=== PATIENT | female | born 1955 | race Hispanic/Latino ===

== ENCOUNTER 2023-04-24 11:01 | Outpatient (RCR) | payer MEDICARE | END 2023-05-05 | LOC: PT 11:01 | PROVIDERS: ATTEND Family Medicine | DX: M54.30 Sciatica, unspecified side (principal) ==

== ENCOUNTER 2024-06-18 13:40 | Inpatient (IN) | payer MEDICARE ==
[~2024-06-18] VITALS: Ht 154.9 cm; Wt 68.0 kg
[2024-06-18] MEDS: SODIUM CHLORIDE 0.9% 1000ML 1,000 ML IV STA ×3 (14:38→19:11)
[2024-06-18 14:41] LABS: BASOPHILS % 0.2 % (0.0-1.0); HEMATOCRIT 39.1 % (34.2-44.1); LYMPHOCYTES # (AUTO) 0.5 (1.0-3.2); LYMPHOCYTES % 9.4 % (18.0-39.1); MEAN CORPUSCULAR HEMOGLOBIN 26.5 pg (28-32); MEAN CORPUSCULAR HGB CONC 30.7 g/dL (31-35); MEAN CORPUSCULAR VOLUME 86.5 fL (81-99); MONOCYTES # (AUTO) 0.3 (0.2-0.8); NEUTROPHILS # (AUTO) 4.6 (2.1-6.9); NEUTROPHILS % 85.2 % (38.7-80.0); PLATELET COUNT 229 x10e3/uL (140-360); RED BLOOD COUNT 4.52 x10e6/uL (3.6-5.1); RED CELL DISTRIBUTION WIDTH 13.6 % (11.7-14.4); WHITE BLOOD COUNT 5.42 x10e3/uL (4.8-10.8)
[2024-06-18 14:50] LABS: INR 0.99; PROTHROMBIN TIME 13.7 seconds (11.9-14.5)
[2024-06-18] MEDS: Vancomycin IV 1 GM in SODIUM CHLORIDE 0.9% 250ML 250 ML IV ONE (14:50)
[2024-06-18 14:51] LABS: PARTIAL THROMBOPLASTIN TIME 35.3 seconds (23.8-35.5)
[2024-06-18] MEDS: ACETAMINOPHEN 325 MG TAB PO ONE (14:51)
[2024-06-18 14:55] LABS: BILIRUBIN,URINE NEGATIVE (NEGATIVE); CLARITY,URINE CLEAR (CLEAR); COLOR,URINE YELLOW (YELLOW); GLUCOSE, URINE 500 (NEGATIVE); KETONES,URINE 2+ (NEGATIVE); LEUKOCYTE ESTERASE ,URINE NEGATIVE (NEGATIVE); NITRITE,URINE POSITIVE (NEGATIVE); PH,URINE 6 (5 - 7); PROTEIN,URINE DIPSTICK 2+ (NEGATIVE); URINE UROBILINOGEN 0.2 mg/dL (0.2 - 1)
[2024-06-18 14:56] LABS: BACTERIA,URINE MANY /HPF; EPITHELIAL CELLS,URINE RARE /LPF; RBC,URINE 0-5 /HPF (0-5)
[2024-06-18 14:58] LABS: CREATINE KINASE 52 IU/L (29-168)
[2024-06-18 15:01] LABS: ALBUMIN 3.6 g/dL (3.5-5.0); ANION GAP 16.5 mmol/L (8-16); BILIRUBIN,TOTAL 0.4 mg/dL (0.2-1.2); CALCIUM 9.7 mg/dL (8.4-10.2); CREATININE, SERUM 0.75 mg/dL (0.57-1.11); MAGNESIUM 1.7 MG/DL (1.3-2.1); POTASSIUM 4.5 mmol/L (3.5-5.1); TOTAL PROTEIN 7.3 g/dL (6.5-8.1)
[2024-06-18 15:06] LABS: CORONAVIRUS COVID-19 AG NEGATIVE (NEGATIVE); INFLUENZA A AG NEGATIVE (NEGATIVE); INFLUENZA B AG NEGATIVE (NEGATIVE)
[2024-06-18 15:52] LABS: TROPONIN I < 0.001 ng/mL (0-0.300)
[2024-06-18] MEDS ORDERED: ONDANSETRON HCL INJ 2MG/ML 2ML 2 MG/ML VIAL IV PRN (18:30)
[2024-06-18 19:05] VITALS: TEMP 98.1
[2024-06-18] MEDS: SODIUM CHLORIDE 0.9% 1000ML 1,000 ML IV SCH (19:14)
[2024-06-18] MEDS: MEROPENEM 1 GM in SODIUM CHLORIDE 0.9% 100 ML IV SCH (19:15)
[2024-06-18 21:06] VITALS: PULSE 83; RESP 18
[2024-06-18 21:30] VITALS: BP 127/65; PULSE 87; RESP 20; TEMP 98.3; O2SAT 100
[2024-06-18] MEDS ORDERED: JARDIANCE25 MG PO (22:13)
[2024-06-18] MEDS ORDERED: METFORMIN HCL1000 MG PO (22:13)
[2024-06-18] MEDS ORDERED: LEVOTHYROXINE150 MCG PO (22:13)
[2024-06-18] MEDS ORDERED: CETIRIZINE HCL10 MG PO (22:13)
[2024-06-18] MEDS ORDERED: DICYCLOMINE HCL10 MG PO (22:13)
[2024-06-18] MEDS ORDERED: DORZOLAMIDE-TIM10 ML OP (22:13)
[2024-06-18] MEDS ORDERED: VASOTEC5 MG PO (22:13)
[2024-06-18] MEDS ORDERED: SUCRALFATE1 GM PO (22:13)
[2024-06-18] MEDS ORDERED: EZETIMIBE10 MG PO (22:13)
[2024-06-18] MEDS ORDERED: VASCEPA1 GM PO (22:13)
[2024-06-18] MEDS ORDERED: GLIMEPIRIDE2 MG PO (22:13)
[2024-06-18] MEDS ORDERED: CELECOXIB200 MG PO (22:13)
[2024-06-18] MEDS ORDERED: DEXLANSOPRAZOLE60 MG PO (22:13)
[2024-06-18 22:16] LABS: FREE THYROXINE INDEX 3.2558 (1.4-3.8); T3 UPTAKE 26.6 % (22.5-37.0); THYROID STIMULATING HORMONE 0.046 uIU/mL (0.350-4.940)
[2024-06-18 22:44] LABS: T4 (THYROXINE) 12.24 ug/dL (4.5-10.9)
[2024-06-19] VITALS (10 sets, daily range): BP systolic 103–153; BP diastolic 54–64; PULSE 78–90; RESP 17–21; TEMP 98.2–102.9; O2SAT 96–99
[2024-06-19] MEDS: Vancomycin IV 1 GM in SODIUM CHLORIDE 0.9% 250ML 250 ML IV SCH (03:32)
[2024-06-19] MEDS: ACETAMINOPHEN 325 MG TAB PO ONE (06:10)
[2024-06-19 10:05] LABS: BASOPHILS % 0.3 % (0.0-1.0); HEMATOCRIT 32.4 % (34.2-44.1); LYMPHOCYTES # (AUTO) 0.7 (1.0-3.2); LYMPHOCYTES % 22.8 % (18.0-39.1); MEAN CORPUSCULAR HGB CONC 30.9 g/dL (31-35); MEAN CORPUSCULAR VOLUME 87.3 fL (81-99); MONOCYTES # (AUTO) 0.3 (0.2-0.8); MONOCYTES % 7.9 % (4.4-11.3); NEUTROPHILS # (AUTO) 2.2 (2.1-6.9); NEUTROPHILS % 68.4 % (38.7-80.0); PLATELET COUNT 176 x10e3/uL (140-360); RED BLOOD COUNT 3.71 x10e6/uL (3.6-5.1); RED CELL DISTRIBUTION WIDTH 13.6 % (11.7-14.4); WHITE BLOOD COUNT 3.16 x10e3/uL (4.8-10.8)
[2024-06-19] MEDS: Morphine 4mg INJECTION 4 MG/ML INJ IV PRN (10:18)
[2024-06-19 10:43] LABS: ALBUMIN 2.6 g/dL (3.5-5.0); ANION GAP 11.8 mmol/L (8-16); BILIRUBIN,TOTAL 0.3 mg/dL (0.2-1.2); CREATININE, SERUM 0.64 mg/dL (0.57-1.11); POTASSIUM 3.8 mmol/L (3.5-5.1); TOTAL PROTEIN 5.3 g/dL (6.5-8.1)
[2024-06-19] MEDS ORDERED: DEXTROSE 50% SYRINGE 50 ML IV PRN (11:15)
[2024-06-19] MEDS ORDERED: ALBUTEROL/IPRATROPIUM 3 ML NEB NEB PRN (11:30)
[2024-06-19] MEDS ORDERED: HYDRALAZINE HCL 20 MG/ML VIAL IV PRN (11:30)
[2024-06-19] MEDS: INSULIN LISPRO 100 UNIT/1 ML 3ML VIAL SQ SCH (11:30)
[2024-06-19] MEDS: DICYCLOMINE HCL 10 MG CAP PO SCH (11:50)
[2024-06-19] MEDS: ALPRAZOLAM 0.25 MG TAB PO PRN (11:51)
[2024-06-19] MEDS: ALBUTEROL/IPRATROPIUM 3 ML NEB NEB ONE (12:16)
[2024-06-19] MEDS: ACETAMINOPHEN 325 MG TAB PO PRN (16:32)
[2024-06-19] MEDS: DORZOLAMIDE/TIMOLOL (OPTH SOL) 10 ML DRPETTE OP SCH (16:33)
[2024-06-20] VITALS (9 sets, daily range): BP systolic 105–136; BP diastolic 61–74; PULSE 78–90; RESP 17–19; TEMP 98.4–102.9; O2SAT 96–99
[2024-06-20] MEDS: LEVOTHYROXINE SODIUM 100 MCG TAB PO SCH (05:41)
[2024-06-20] MEDS ORDERED: LEVOTHYROXINE SODIUM 75 MCG TAB PO SCH (06:00)
[2024-06-20] MEDS: PANTOPRAZOLE SOD 40 MG TABEC PO SCH (08:38)
[2024-06-20] MEDS: SODIUM CHLORIDE 0.9% 500ML 500 ML ONE (14:14)
[2024-06-20] MEDS: HYDROCODONE/APAP 10MG-325MG TAB PO PRN (21:00)
[2024-06-21] VITALS (8 sets, daily range): BP systolic 109–138; BP diastolic 55–76; PULSE 78–121; RESP 17–20; TEMP 97.3–101.4; O2SAT 97–99
[2024-06-21] MEDS ORDERED: SODIUM CHLORIDE 0.9% 100 ML ONE (15:18)
[2024-06-22] VITALS (9 sets, daily range): BP systolic 115–150; BP diastolic 62–77; PULSE 77–121; RESP 18–21; TEMP 98.1–102; O2SAT 97–100
[2024-06-22 08:50] LABS: BASOPHILS % 0.2 % (0.0-1.0); HEMATOCRIT 32.1 % (34.2-44.1); HEMOGLOBIN 10.2 g/dL (12.0-16.0); LYMPHOCYTES % 16.8 % (18.0-39.1); MEAN CORPUSCULAR HEMOGLOBIN 26.4 pg (28-32); MEAN CORPUSCULAR HGB CONC 31.8 g/dL (31-35); MEAN CORPUSCULAR VOLUME 83.2 fL (81-99); MONOCYTES # (AUTO) 0.3 (0.2-0.8); MONOCYTES % 5.2 % (4.4-11.3); NEUTROPHILS # (AUTO) 4.6 (2.1-6.9); PLATELET COUNT 173 x10e3/uL (140-360); RED BLOOD COUNT 3.86 x10e6/uL (3.6-5.1); RED CELL DISTRIBUTION WIDTH 13.5 % (11.7-14.4); WHITE BLOOD COUNT 5.91 x10e3/uL (4.8-10.8)
[2024-06-22 09:08] LABS: ANION GAP 14.6 mmol/L (8-16); CALCIUM 8.1 mg/dL (8.4-10.2); CREATININE, SERUM 0.58 mg/dL (0.57-1.11); POTASSIUM 3.6 mmol/L (3.5-5.1)
[2024-06-23 03:38] VITALS: BP 116/59; PULSE 93; RESP 18; TEMP 100.9; O2SAT 97
[2024-06-23 06:03] VITALS: PULSE 74; RESP 20; O2SAT 95
[2024-06-23 09:07] VITALS: BP 107/64; PULSE 85; RESP 18; TEMP 99; O2SAT 100
[2024-06-23] MEDS ORDERED: LYRICA25 MG PO (10:45)
[2024-06-23] MEDS ORDERED: KEFLEX125 MG/5 M PO (10:45)
[2024-06-23] MEDS ORDERED: VESICARE5 MG PO (10:46)
[2024-06-23 12:13] VITALS: BP 108/57; PULSE 81; RESP 18; TEMP 99.1; O2SAT 97
== END 2024-06-23 13:32 | disposition home or self-care (01) | DRG 690 ==
LOC: ER 13:49 → ERHOLD 18:32 → MED/SURG2 21:15
PROVIDERS: ADMIT Internal Medicine; ATTEND Internal Medicine
DX: N30.81 Other cystitis with hematuria (principal); N12 Tubulo-interstitial nephritis, not specified as acute or chronic; E87.1 Hypo-osmolality and hyponatremia; Q61.02 Congenital multiple renal cysts; Z16.24 Resistance to multiple antibiotics; B96.1 Klebsiella pneumoniae [K. pneumoniae] as the cause of diseases classified elsewhere; D72.819 Decreased white blood cell count, unspecified; E11.649 Type 2 diabetes mellitus with hypoglycemia without coma; T38.3X5A Adverse effect of insulin and oral hypoglycemic [antidiabetic] drugs, initial encounter; Z79.84 Long term (current) use of oral hypoglycemic drugs; R07.89 Other chest pain; R06.02 Shortness of breath; R00.0 Tachycardia, unspecified; E86.9 Volume depletion, unspecified; T40.2X5A Adverse effect of other opioids, initial encounter; Y92.230 Patient room in hospital as the place of occurrence of the external cause; D64.9 Anemia, unspecified; R51.9 Headache, unspecified; E83.51 Hypocalcemia; N20.0 Calculus of kidney; R80.9 Proteinuria, unspecified; I10 Essential (primary) hypertension; E78.5 Hyperlipidemia, unspecified; E03.9 Hypothyroidism, unspecified; E66.9 Obesity, unspecified; Z68.28 Body mass index [BMI] 28.0-28.9, adult; M19.91 Primary osteoarthritis, unspecified site; Z11.52 Encounter for screening for COVID-19; Z79.899 Other long term (current) drug therapy
CPT/HCPCS: 36415; 51700; 70450; 71045; 71250; 74176; 80048; 80053; 81001; 82550; 82948; 83605; 83735; 83880; 84436; 84443; 84479; 84484; 85025; 85610; 85730; 87040; 87086; 87186; 93005; 93306; 94640; 94799; 96372; 99285; J0696; J2185; J2270; J2470; J7030; J7040; J7050

== ENCOUNTER → 2025-03-17 | Outpatient (REF) | payer MEDICARE ==
[~2025-03-17] MED LIST: CELECOXIB200 MG PO; CETIRIZINE HCL10 MG PO; DEXLANSOPRAZOLE60 MG PO; DICYCLOMINE HCL10 MG PO; DORZOLAMIDE-TIM10 ML OP; EZETIMIBE10 MG PO; GLIMEPIRIDE2 MG PO; JARDIANCE25 MG PO; KEFLEX125 MG/5 M PO; LEVOTHYROXINE150 MCG PO; LYRICA25 MG PO; METFORMIN HCL1000 MG PO; SUCRALFATE1 GM PO; VASCEPA1 GM PO; VASOTEC5 MG PO; VESICARE5 MG PO
== END ==
LOC: CT 09:59
PROVIDERS: ATTEND Urology
DX: N20.0 Calculus of kidney (principal)
CPT/HCPCS: 74176